=== PATIENT | male | born 1965 | race Caucasian/White ===

== ENCOUNTER 2024-10-13 08:46 | Inpatient (IN) | payer BC, OTHER ==
[~2024-10-13] VITALS: Ht 165.1 cm; Wt 18.3 kg
[2024-10-13 09:04] VITALS: O2SAT 98
[2024-10-13 10:31] LABS: HEMOGLOBIN. 14.5 g/dL (14.0-18.0); MEAN CORPUSCULAR HEMOGLOBIN 32.5 pg (28.0-32.0); MEAN CORPUSCULAR HGB CONC 35.5 g/dL (31.0-37.0); MEAN CORPUSCULAR VOLUME 91.8 fL (80.0-94.0); MEAN PLATELET VOLUME 7.8 fl (7.4-10.4); PLATELET 196 x1000/uL (130-400); RED BLOOD CELL COUNT 4.46 mill/uL (4.7-6.1); RED CELL DISTRIBUTION WIDTH 12.6 % (11.6-14.6); WHITE BLOOD COUNT 14.9 x1000/uL (4.5-11.0)
[2024-10-13 10:33] LABS: DIFFERENTIAL COMMENT 1
[2024-10-13 10:41] LABS: CHLORIDE 101 mEq/L (98-107); POTASSIUM 3.9 mEq/L (3.5-5.1); SODIUM 135 mEq/L (136-145)
[2024-10-13 10:42] LABS: CALCIUM 9.5 mg/dL (8.7-10.4); CARBON DIOXIDE 24 mEq/L (21-32)
[2024-10-13 10:47] LABS: GLUCOSE 263 mg/dL (70-105); UREA NITROGEN BLOOD 13 mg/dL (9-23)
[2024-10-13 11:39] LABS: PLATELET ESTIMATE NORMAL
[2024-10-13] MEDS: CEFTRIAXONE 1GM/50ML 50 ML IV ONE (12:23)
[2024-10-13] MEDS: SODIUM CHLORIDE 0.9% (SEPSIS BOLUS) IV ONE (12:23)
[2024-10-13 13:22] LABS: PROTHROMBIN TIME 11.2 sec (9.6-11.0)
[2024-10-13 13:26] LABS: TROPONIN I HIGH SENSITIVITY 34 ng/L (3.0-53)
[2024-10-13 13:27] LABS: ALANINE AMINOTRANSFERASE 41 IU/L (10-49); ASPARTATE AMINOTRANSFERASE 44 IU/L (<34); BILIRUBIN DIRECT 0.2 mg/dL (<=3.0); BILIRUBIN TOTAL 0.6 mg/dL (0.1-1.0); PROTEIN TOTAL 6.5 g/dL (6.0-8.3)
[2024-10-13 14:07] LABS: LACTIC ACID 2.1 mmol/L (0.4-2.0)
[2024-10-13 14:37] LABS: TROPONIN I HIGH SENSITIVITY 38 ng/L (3.0-53)
[2024-10-13 16:11] LABS: CLARITY URINE CLEAR (CLEAR); COLOR URINE YELLOW (YELLOW); GLUCOSE URINE TRACE (NEGATIVE); KETONES URINE NEGATIVE (NEGATIVE); LEUKOCYTE ESTERASE URINE 1+ (NEGATIVE); NITRITE URINE NEGATIVE (NEGATIVE); OCCULT BLOOD URINE 2+ (NEGATIVE); PROTEIN URINE 2+ (NEGATIVE); SPECIFIC GRAVITY URINE 1.011 (1.005-1.030); UROBILINOGEN URINE 0.2 E.U./dL (0.2-1.0)
[2024-10-13 16:58] LABS: BACTERIA URINE 1+; SQUAMOUS EPITHELIAL CELL URINE FEW /lpf (RARE/1+); WBC URINE 15-25 /hpf (0-2)
[2024-10-13 17:00] VITALS: BP 115/63; PULSE 90; RESP 18; TEMP 36.3
[2024-10-13] MEDS ORDERED: ACETAMINOPHEN 325MG TABLET PO PRN (17:00)
[2024-10-13] MEDS ORDERED: DOCUSATE SODIUM 100MG CAPSULE PO PRN (17:00)
[2024-10-13] MEDS ORDERED: LEVOFLOXACIN 500MG PREMIX 100 ML IV SCH (17:00)
[2024-10-13] MEDS ORDERED: ONDANSETRON HCL 4MG/2ML INJ IV PRN (17:00)
[2024-10-13] MEDS: LEVOFLOXACIN 750MG PREMIX 150 ML IV SCH (19:27)
[2024-10-13 20:00] VITALS: BP 98/63; PULSE 98; RESP 19; TEMP 36.7; O2SAT 94
[2024-10-13] MEDS: ACETAMINOPHEN 325MG TABLET PO PRN (20:03)
[2024-10-13] MEDS: ENOXAPARIN 40MG/0.4ML SYR SUBCUT SCH (20:04)
[2024-10-14] VITALS: BP 94/62; PULSE 75; RESP 18; TEMP 36.7; O2SAT 98
[2024-10-14 04:00] VITALS: BP 121/72; PULSE 84; RESP 19; TEMP 38.4; O2SAT 98
[2024-10-14 08:00] VITALS: BP 122/73; PULSE 85; RESP 18; TEMP 37.2; O2SAT 98
[2024-10-14 10:55] LABS: CHLORIDE 103 mEq/L (98-107); POTASSIUM 3.6 mEq/L (3.5-5.1); SODIUM 137 mEq/L (136-145)
[2024-10-14 10:56] LABS: CARBON DIOXIDE 24 mEq/L (21-32)
[2024-10-14 11:01] LABS: CREATININE 0.8 mg/dL (0.6-1.3); GLUCOSE 296 mg/dL (70-105); UREA NITROGEN BLOOD 13 mg/dL (9-23)
[2024-10-14 11:21] LABS: BASOPHILS % 0.4 % (0.0-2.0); EOSINOPHILS % 0.9 % (0.0-5.0); HEMATOCRIT. 34.1 % (42.0-52.0); HEMOGLOBIN. 12.3 g/dL (14.0-18.0); LYMPHOCYTES % 12.4 % (20.0-50.0); MEAN CORPUSCULAR HEMOGLOBIN 33.1 pg (28.0-32.0); MEAN CORPUSCULAR VOLUME 91.9 fL (80.0-94.0); MEAN PLATELET VOLUME 8.1 fl (7.4-10.4); MONOCYTES % 6.6 % (2.0-8.0); NEUTROPHILS % 79.7 % (40.0-76.0); PLATELET 178 x1000/uL (130-400); RED BLOOD CELL COUNT 3.71 mill/uL (4.7-6.1); RED CELL DISTRIBUTION WIDTH 12.8 % (11.6-14.6); WHITE BLOOD COUNT 8.1 x1000/uL (4.5-11.0)
[2024-10-14] MEDS: PIPERACILLIN/TAZO 3.375G/50ML 100 ML IV SCH (11:43)
[2024-10-14 12:00] VITALS: BP 120/69; PULSE 89; RESP 18; TEMP 37.3; O2SAT 98
[2024-10-14 16:00] VITALS: BP 133/74; PULSE 95; RESP 18; TEMP 37.8; O2SAT 98
[2024-10-14] MEDS ORDERED: DEXTROSE 50% WATER 50ML SYRINGE IV PRN (16:45)
[2024-10-14] MEDS: BLOOD SUGAR DIAGNOSTIC STRIP TEST SCH (17:20)
[2024-10-14] MEDS: INSULIN LISPRO 100 UNITS/ML SUBCUT SCH (18:25)
[2024-10-14 20:00] VITALS: BP 149/86; PULSE 107; RESP 19; TEMP 37.1; O2SAT 97
[2024-10-15] MEDS ORDERED: SULF1TAB48 MT (10:03)
== END 2024-10-15 08:55 | disposition short-term general hospital (02) | DRG 690 ==
LOC: ER 08:46 → EDBEDREQ 13:54 → EDBEDREQSVC 13:54 → EDBEDREQTM 13:54 → ENRESERV 15:22 → 6EST 16:50
PROVIDERS: ADMIT Internal Medicine; ATTEND Internal Medicine
DX: N39.0 Urinary tract infection, site not specified (principal); N40.0 Benign prostatic hyperplasia without lower urinary tract symptoms; I11.0 Hypertensive heart disease with heart failure; I50.9 Heart failure, unspecified; Z79.899 Other long term (current) drug therapy
CPT/HCPCS: 36415; 71045; 76770; 80048; 80076; 81003; 82962; 83036; 83605; 84145; 84484; 85025; 87077; 87186; 93005; 96365; 99291; A4606; J0696; J1650; J1815; J1956; J2543; J7030